=== PATIENT | female | born 1950 | race Two or more races ===

== ENCOUNTER 2018-07-10 09:38 | Outpatient (CLI) | payer OTHER | END 2018-07-10 10:00 | disposition home or self-care (01) | LOC: NUCLEAR 09:38 | DX: I65.23 Occlusion and stenosis of bilateral carotid arteries (principal) ==

== ENCOUNTER 2018-07-26 08:47 | Outpatient (CLI) | payer OTHER | END 2018-07-26 08:48 | disposition home or self-care (01) | LOC: SONOGRAMA 08:47 | DX: R10.9 Unspecified abdominal pain (principal) ==

== ENCOUNTER → 2018-08-01 | Outpatient (CLI) | payer OTHER | END | disposition home or self-care (01) | LOC: NUCLEAR 09:52 | DX: I20.8 Other forms of angina pectoris (principal) | CPT/HCPCS: 78452; 93017; A9500; J0153 ==

== ENCOUNTER 2019-12-25 08:47 | Emergency (ER) | payer OTHER ==
[~2019-12-25] VITALS: Ht 162.6 cm; Wt 93.0 kg
[2019-12-25] MEDS ORDERED: LEVOTHYROXINE25 MCG (08:55)
== END 2019-12-25 14:00 | disposition home or self-care (01) ==
LOC: ER 08:47
DX: R10.31 Right lower quadrant pain (principal); Z20.828 Contact with and (suspected) exposure to other viral communicable diseases

== ENCOUNTER 2021-07-20 15:35 | Outpatient (CLI) | payer OTHER ==
[~2021-07-20 15:35] MED LIST: LEVOTHYROXINE25 MCG
== END 2021-07-20 15:39 | disposition home or self-care (01) ==
LOC: RAD 15:35
PROVIDERS: ATTEND Internal Medicine
DX: M25.511 Pain in right shoulder (principal); M25.512 Pain in left shoulder; M25.562 Pain in left knee; M25.561 Pain in right knee

== ENCOUNTER 2022-10-20 12:55 | Outpatient (CLI) | payer OTHER | END 2022-10-20 13:12 | disposition home or self-care (01) | LOC: RAD 12:55 | PROVIDERS: ATTEND Physical Medicine & Rehabilitation | DX: M25.561 Pain in right knee (principal); M25.562 Pain in left knee; M25.511 Pain in right shoulder; M25.512 Pain in left shoulder ==

== ENCOUNTER 2022-10-24 12:52 | Outpatient (CLI) | payer OTHER | END 2022-10-24 12:57 | disposition home or self-care (01) | LOC: SONOGRAMA 12:52 | PROVIDERS: ATTEND Physical Medicine & Rehabilitation | DX: E04.1 Nontoxic single thyroid nodule (principal); M25.511 Pain in right shoulder; M25.512 Pain in left shoulder; M75.102 Unspecified rotator cuff tear or rupture of left shoulder, not specified as traumatic ==

== ENCOUNTER 2022-12-14 11:10 | Outpatient (CLI) | payer OTHER | END 2022-12-14 11:20 | disposition home or self-care (01) | LOC: RAD 11:10 | PROVIDERS: ATTEND Physical Medicine & Rehabilitation | DX: M54.2 Cervicalgia (principal) ==

== ENCOUNTER 2023-02-16 11:52 | Outpatient (CLI) | payer OTHER | END 2023-02-16 12:05 | disposition home or self-care (01) | LOC: MRI 11:52 | PROVIDERS: ATTEND Internal Medicine | DX: M54.2 Cervicalgia (principal); M25.512 Pain in left shoulder | CPT/HCPCS: 72141; 73218 ==

== ENCOUNTER 2023-03-28 10:30 | Outpatient (CLI) | payer OTHER | END 2023-03-28 10:43 | disposition home or self-care (01) | LOC: MRI 10:30 | PROVIDERS: ATTEND Orthopaedic Surgery | DX: M25.562 Pain in left knee (principal) | CPT/HCPCS: 73721 ==

== ENCOUNTER 2023-05-06 09:54 | Emergency (ER) | payer OTHER ==
[~2023-05-06] VITALS: Ht 162.6 cm; Wt 90.7 kg
[2023-05-06] MEDS ORDERED: AVELOX (10:11)
[2023-05-06] MEDS ORDERED: DEXAMETHAS0.5 MG/5 M PO (10:12)
[2023-05-06] MEDS ORDERED: KETO10TA2 PO (10:12)
== END 2023-05-06 15:40 | disposition home or self-care (01) ==
LOC: ER 09:55
DX: H60.91 Unspecified otitis externa, right ear (principal)
CPT/HCPCS: 70130; 70360; 72040; 96365; 99284; J0696

== ENCOUNTER 2024-11-04 09:11 | Emergency (ER) | payer OTHER ==
[~2024-11-04] VITALS: Ht 162.6 cm; Wt 83.9 kg
[~2024-11-04 09:11] MED LIST changes: +AVELOX; +DEXAMETHAS0.5 MG/5 M PO; +KETO10TA2 PO
[2024-11-04] MEDS ORDERED: ORPHENADRINE CITRATE 30 MG/ML AMPUL IM ONE (13:15)
[2024-11-04] MEDS ORDERED: KETOROLAC TROMETHAMINE 30 MG VIAL IV ONE (13:15)
[2024-11-04] MEDS ORDERED: DEXAMETHASONE SODIUM PHOSPHATE 4 MG/ML VIAL IM ONE (13:15)
[2024-11-04] MEDS ORDERED: DEXAMETHASONE SODIUM PHOSPHATE 4 MG/ML VIAL IV ONE (13:15)
[2024-11-04 14:17] LABS: BASO % 0.4 % (0.1-1.2); EOS # 0.19 (0.04-0.54); EOS % 2.3 % (0.7-7.0); LYMPH # 2.47 (1.18-3.74); LYMPH % 29.4 % (19.3-53.1); MEAN PLATELET VOLUME 10.50 fl (9.4-12.4); MONO # 0.61 (0.24-0.82); MONO % 7.3 % (4.7-12.5); NEUT # 5.07 (1.56-6.13); NEUT % 60.4 % (34.0-71.1); RED CELL DISTRIBUTION WIDTH 15.1 % (11.6-14.4)
[2024-11-04 16:44] LABS: URINE APPEARANCE Clear; URINE BILIRRUBIN Negative (NEGATIVE); URINE BLOOD Negative; URINE COLOR Yellow; URINE GLUCOSE Negative (NEGATIVE); URINE KETONE Negative (NEGATIVE); URINE LEUKOCYTE Trace; URINE NITRATE Negative; URINE PROTEIN Negative (NEGATIVE); URINE UROBILINOGEN 0.2 E.U./dl
[2024-11-04 16:55] LABS: URINE BACTERIA 49.1 uL (0.0-1933); URINE EPITHELIAL CELLS 8.5 uL (0.0-38.8); URINE WBC 5.6 uL (0.0-23.2)
[2024-11-04 17:21] LABS: URINE CAST 0.14 uL (0.0-1.40); URINE RBC 1.4 uL (0.0-20.8)
== END 2024-11-04 18:10 | disposition home or self-care (01) ==
LOC: ER 09:11
PROVIDERS: Preventive Medicine Public Health & General Preventive Medicine
DX: M54.50 Low back pain, unspecified (principal); R30.0 Dysuria; E03.8 Other specified hypothyroidism

== ENCOUNTER 2025-01-07 13:36 | Inpatient (IN) | payer OTHER ==
[~2025-01-07] VITALS: Ht 132.1 cm; Wt 86.2 kg
[2025-01-07] MEDS ORDERED: PANTOPRAZOLE SODIUM 40 MG in 0.9 % SODIUM CHLORIDE 8 ML IV PUSH STA (13:57)
[2025-01-07] MEDS ORDERED: ONDANSETRON HCL 2 MG/ML VIAL IV SCH (14:00)
[2025-01-07] MEDS ORDERED: DEXTROSE 5 %-0.45 % SOD CHLORD 1,000 ML IV SCH (14:00)
--- NOTE | 2025-01-07 15:50 | NUR ---
PACIENTE FEMINA, S/V EN PARAMETROS NORMALES, C/C DOLOR ABDOMINAL IRRADIA LADO DERECHO, SE UBICA EN CAMA 9 PARA SER EVALUADA.
[2025-01-07] MEDS ORDERED: ONDANSETRON HCL 2 MG/ML VIAL ONE (15:59)
[2025-01-07] MEDS ORDERED: BARIUM SULFATE 450 ML ORAL.SUSP PO ONE (16:00)
[2025-01-07] MEDS ORDERED: DIATRIZOATE MEGLUMINE, SODIUM 30 ML BOTTLE ONE (16:06)
--- NOTE | 2025-01-07 16:21 | NUR ---
MS AVE ORIENTA PTE SOBRE TX MEDICO EL CUAL REFIERE ENTENDER.SE LE EXTRAEN MUESTRAS BAJO MEDIDAS ASEPTICAS,SE CANALIZA Y SE ADMINISTRAN MEDICAMENTOS.SE ENTREGA CONTRASTE Y SE NOTIFICA ESTUDIO.
[2025-01-07 16:33] LABS: BASO % 0.6 % (0.1-1.2); EOS # 0.04 (0.04-0.54); EOS % 0.6 % (0.7-7.0); LYMPH # 4.12 (1.18-3.74); LYMPH % 58.6 % (19.3-53.1); MEAN PLATELET VOLUME 9.80 fl (9.4-12.4); MONO # 0.47 (0.24-0.82); MONO % 6.7 % (4.7-12.5); NEUT # 2.32 (1.56-6.13); NEUT % 32.9 % (34.0-71.1); RED CELL DISTRIBUTION WIDTH 14.8 % (11.6-14.4)
[2025-01-07 16:57] LABS: INR 1.0
[2025-01-07 17:17] LABS: ALT/SGPT 66.0 U/L (12-78); AST/SGOT 81.0 U/L (15-37); BILIRUBIN TOTAL 0.49 mg/dL (0.3-1.2); BUN CREA RATIO 10.0 (7.0-25.0); CREATININE SERUM 0.7 mg/dL (0.55-1.02); GFR 81.36; GLOBULINA 3.9 G/DL (2.4-3.5); GLUCOSE FASTING 95.0 mg/dL (65-100); OSMOLALITY SERUM 275.0 MOSM/KG (275-295)
[2025-01-07] MEDS ORDERED: PIPERACILLIN/TAZOBACTAM SODIUM 3.375 GM VIAL IV ONE ×3 (17:30→22:17)
[2025-01-07 17:42] LABS: URINE APPEARANCE Clear; URINE BILIRRUBIN Negative (NEGATIVE); URINE BLOOD Negative; URINE COLOR Yellow; URINE GLUCOSE Negative (NEGATIVE); URINE KETONE Negative (NEGATIVE); URINE LEUKOCYTE Trace; URINE NITRATE Negative; URINE PROTEIN Negative (NEGATIVE); URINE UROBILINOGEN 0.2 E.U./dl
[2025-01-07 17:45] LABS: URINE BACTERIA 64.7 uL (0.0-1933); URINE EPITHELIAL CELLS 11.5 uL (0.0-38.8); URINE RBC 2.1 uL (0.0-20.8); URINE WBC 28.9 uL (0.0-23.2)
[2025-01-07 18:03] LABS: URINE CAST 0.14 uL (0.0-1.40)
[2025-01-07] MEDS ORDERED: PIPERACILLIN/TAZOBACTAM SODIUM 3.375 GM in 0.9 % SODIUM CHLORIDE 100 ML IV SCH (21:59)
[2025-01-07] MEDS ORDERED: ONDANSETRON HCL 4 MG in 0.9 % SODIUM CHLORIDE 50 ML IV PRN (22:00)
[2025-01-07] MEDS ORDERED: MORPHINE SULFATE 2 MG/ML CARTRIDGE IV PRN (22:00)
[2025-01-07] MEDS ORDERED: 0.9 % SODIUM CHLORIDE 1,000 ML IV SCH (22:15)
[2025-01-07 23:50] LABS: COVID-19 AG NEGATIVE (NEGATIVE)
[2025-01-08 00:33] VITALS: BP 160/87; O2SAT 99
[2025-01-08 03:26] VITALS: BP 121/76; O2SAT 96
[2025-01-08] MEDS ORDERED: LEVOTHYROXINE SODIUM 25 MCG TABLET PO SCH (06:00)
[2025-01-08 08:00] VITALS: BP 124/73; O2SAT 97
[2025-01-08] MEDS ORDERED: PANTOPRAZOLE SODIUM 40 MG/VIAL VIAL IV NR (12:00)
[2025-01-08] MEDS ORDERED: LIDOCAINE HCL 1%/EPINEPHRINE 20ML VIAL IJ ONE (12:39)
[2025-01-08] MEDS ORDERED: BUPIVACAINE HCL/MPF 0.5% 30ML VIAL ONE (12:39)
[2025-01-08] MEDS ORDERED: SUCRALFATE 1 G TABLET PO SCH (13:00)
[2025-01-08] MEDS ORDERED: SUGAMMADEX SODIUM 200 MG/2 ML VIAL IV ONE (15:15)
[2025-01-08] MEDS ORDERED: MORPHINE SULFATE 2 MG/ML CARTRIDGE IV ONE (16:30)
[2025-01-08] MEDS ORDERED: ONDANSETRON HCL 2 MG/ML VIAL ONE (16:36)
[2025-01-08] MEDS ORDERED: PIPERACILLIN/TAZOBACTAM SODIUM 3.375 GM VIAL IV ONE (18:18)
[2025-01-08] MEDS ORDERED: ENALAPRILAT DIHYDRATE 1.25 MG/ML VIAL IV ONE (19:00)
[2025-01-08] MEDS ORDERED: ENALAPRILAT DIHYDRATE 1.25 MG/ML VIAL IV PRN (19:00)
[2025-01-08] MEDS ORDERED: MORPHINE SULFATE 2 MG/ML CARTRIDGE IV PRN (19:04)
[2025-01-08] MEDS ORDERED: MORPHINE SULFATE 4 MG/ML CARTRIDGE IV PRN (19:15)
[2025-01-08 19:36] VITALS: BP 149/71; O2SAT 94
[2025-01-08] MEDS ORDERED: PANTOPRAZOLE SODIUM 40 MG/VIAL VIAL IV SCH (21:00)
[2025-01-09 02:19] VITALS: BP 142/75; O2SAT 96
[2025-01-09 06:30] LABS: BASO % 0.3 % (0.1-1.2); EOS # 0.03 (0.04-0.54); EOS % 0.4 % (0.7-7.0); LYMPH # 2.41 (1.18-3.74); LYMPH % 33.8 % (19.3-53.1); MEAN PLATELET VOLUME 10.10 fl (9.4-12.4); MONO # 0.49 (0.24-0.82); MONO % 6.9 % (4.7-12.5); NEUT # 4.15 (1.56-6.13); NEUT % 58.3 % (34.0-71.1); RED CELL DISTRIBUTION WIDTH 15.3 % (11.6-14.4)
[2025-01-09 07:00] LABS: ALT/SGPT 148.0 U/L (12-78); AST/SGOT 231.0 U/L (15-37); BILIRUBIN TOTAL 1.02 mg/dL (0.3-1.2); BUN CREA RATIO 6.0 (7.0-25.0); CREATININE SERUM 0.64 mg/dL (0.55-1.02); GFR 90.22; GLOBULINA 3.2 G/DL (2.4-3.5); GLUCOSE FASTING 91.0 mg/dL (65-100); OSMOLALITY SERUM 281.0 MOSM/KG (275-295)
[2025-01-09 07:58] VITALS: BP 167/80; O2SAT 97
[2025-01-09 11:10] VITALS: BP 121/70
[2025-01-09] MEDS ORDERED: TRAM1TAB98 PO (11:46)
[2025-01-09] MEDS ORDERED: CARAFATE1 GM PO (11:47)
[2025-01-09] MEDS ORDERED: PROTONIX40 MG PO (11:47)
[2025-01-09 17:06] VITALS: BP 141/79; O2SAT 99
[2025-01-10 01:13] VITALS: BP 139/73; O2SAT 99
[2025-01-10 08:00] VITALS: BP 145/66; O2SAT 99
[2025-01-10 08:23] LABS: ALT/SGPT 125.0 U/L (12-78); AST/SGOT 126.0 U/L (15-37); BILIRUBIN TOTAL 0.54 mg/dL (0.3-1.2); BUN CREA RATIO 3.0 (7.0-25.0); CREATININE SERUM 0.64 mg/dL (0.55-1.02); GFR 90.22; GLOBULINA 3.3 G/DL (2.4-3.5); GLUCOSE FASTING 130.0 mg/dL (65-100); OSMOLALITY SERUM 283.0 MOSM/KG (275-295)
[2025-01-10] MEDS ORDERED: ENOXAPARIN SODIUM 40 MG/0.4 ML SYRINGE SUBCUTANEO SCH (09:00)
== END 2025-01-10 14:57 | disposition home or self-care (01) | DRG 419 ==
LOC: ER 13:36 → SURH 22:30 → SURG 22:30 → SURH 01-09 14:11
PROVIDERS: General Practice; Internal Medicine; Specialist; ADMIT Internal Medicine; ATTEND Internal Medicine
PROC: BW21ZZZ Computerized Tomography (CT Scan) of Abdomen and Pelvis (ICD-10-PCS; 2025-01-07)
PROC: BW40ZZZ Ultrasonography of Abdomen (ICD-10-PCS; 2025-01-07)
PROC: 0FT44ZZ Resection of Gallbladder, Percutaneous Endoscopic Approach (ICD-10-PCS; principal; 2025-01-08 14:15)
DX: K80.20 Calculus of gallbladder without cholecystitis without obstruction (principal); K57.90 Diverticulosis of intestine, part unspecified, without perforation or abscess without bleeding

== ENCOUNTER → 2025-04-11 | Emergency (ER) | payer OTHER ==
[~2025-04-11] VITALS: Ht 162.6 cm; Wt 79.4 kg
[~2025-04-11] MED LIST changes: +0.9 % SODIUM CHLORIDE 1,000 ML IV SCH; +ALBUTEROL SULFATE 3 ML/2.5 MG AMPUL.NEB IH ONE; +AZITHROMYCIN 500 MG VIAL IV ONE; +CARAFATE1 GM PO; +CEFTRIAXONE SODIUM 500 MG VIAL IV ONE; +FAMOTIDINE/PF 20 MG/2 ML VIAL IV ONE; +FAMOTIDINE/PF 20 MG/2 ML VIAL ONE; +GUAIFENESIN 200 MG/10 ML BLIST.PACK PO ONE; +IPRATROPIUM BROMIDE 0.5 MG/2.5 ML AMPUL.NEB IH ONE; +IPRATROPIUM/ALBUTEROL SULFATE 3 ML AMPUL.NEB IH ONE; +METHYLPREDNISOLONE SOD SUCC 40 MG VIAL IV ONE; +METHYLPREDNISOLONE SOD SUCC 40 MG VIAL ONE; +PROTONIX40 MG PO; +TRAM1TAB98 PO; +ZITHROMAX TRI-500 MG PO; +[UNRECOGNIZED DRUG - OTHER] PO
[2025-04-11 10:48] LABS: BASO % 0.6 % (0.1-1.2); EOS # 0.20 (0.04-0.54); EOS % 2.9 % (0.7-7.0); LYMPH # 1.77 (1.18-3.74); LYMPH % 25.8 % (19.3-53.1); MEAN PLATELET VOLUME 8.80 fl (9.4-12.4); MONO # 0.73 (0.24-0.82); MONO % 10.6 % (4.7-12.5); NEUT # 4.11 (1.56-6.13); NEUT % 60.0 % (34.0-71.1); RED CELL DISTRIBUTION WIDTH 15.4 % (11.6-14.4)
[2025-04-11 10:51] LABS: ERYTHROCYTE SEDIMENTATION RATE 84 mm/hr (0-30)
[2025-04-11 11:26] LABS: ALT/SGPT 17.0 U/L (12-78); AST/SGOT 16.0 U/L (15-37); BILIRUBIN TOTAL 0.24 mg/dL (0.3-1.2); BUN CREA RATIO 15.0 (7.0-25.0); CREATININE SERUM 0.52 mg/dL (0.55-1.02); GFR 114.34; GLOBULINA 3.9 G/DL (2.4-3.5); GLUCOSE FASTING 101.0 mg/dL (65-100); OSMOLALITY SERUM 282.0 MOSM/KG (275-295)
[2025-04-11 11:44] LABS: COVID-19 AG NEGATIVE (NEGATIVE)
== END | disposition home or self-care (01) ==
LOC: ER 08:08
PROVIDERS: Student in an Organized Health Care Education/Training Program
DX: J06.9 Acute upper respiratory infection, unspecified (principal); B34.9 Viral infection, unspecified; Z20.822 Contact with and (suspected) exposure to COVID-19
CPT/HCPCS: 36415; 71046; 82803; 94640; 96365; 99283; J0456; J0696; J3490; J7030

== ENCOUNTER 2025-04-13 09:30 | Inpatient (IN) | payer OTHER ==
[~2025-04-13] VITALS: Ht 170.2 cm; Wt 81.6 kg
[~2025-04-13 09:30] MED LIST changes: -0.9 % SODIUM CHLORIDE 1,000 ML IV SCH; -ALBUTEROL SULFATE 3 ML/2.5 MG AMPUL.NEB IH ONE; -AZITHROMYCIN 500 MG VIAL IV ONE; -CEFTRIAXONE SODIUM 500 MG VIAL IV ONE; -FAMOTIDINE/PF 20 MG/2 ML VIAL IV ONE; -FAMOTIDINE/PF 20 MG/2 ML VIAL ONE; -GUAIFENESIN 200 MG/10 ML BLIST.PACK PO ONE; -IPRATROPIUM BROMIDE 0.5 MG/2.5 ML AMPUL.NEB IH ONE; -IPRATROPIUM/ALBUTEROL SULFATE 3 ML AMPUL.NEB IH ONE; -METHYLPREDNISOLONE SOD SUCC 40 MG VIAL IV ONE; -METHYLPREDNISOLONE SOD SUCC 40 MG VIAL ONE
--- NOTE | 2025-04-13 10:05 | NUR ---
PACIENTE FEMINA ALERTA ORIENTADA X3 CON ALTERACION AL SISTEMA RESPIRATORIO RELACIONADON A CONGESTION NASAL Y [place] SE REALIZAN SIGNOS VITALES Y SE LOCALIZA EN EL AREA DE [place]. PACIENTE REFIERE QUE ESTUVO EN LA [place] DE EMERGENCIA EL SABADO Y POSTERIORMENTE REGRESA POR EMPEORO DE SINTOMAS CON DEONNA TOS ROCKY.
[2025-04-13] MEDS ORDERED: CETIRIZINE HCL 5 MG/5 ML ML PO ONE (10:45)
[2025-04-13] MEDS ORDERED: FAMOtidine 10 MG/ML (4ML VIAL) IV PUSH ONE (10:45)
[2025-04-13] MEDS ORDERED: AZITHROMYCIN 500 MG VIAL IV ONE ×2 (10:45→11:00)
[2025-04-13] MEDS ORDERED: IPRATROPIUM BROMIDE 0.5 MG/2.5 ML AMPUL.NEB IH SCH (10:45)
[2025-04-13] MEDS ORDERED: BUDESONIDE 0.5 MG/2 ML AMPUL.NEB IH ONE (10:45)
[2025-04-13] MEDS ORDERED: MAGNESIUM SULFATE IN WATER 50 ML IV ONE (10:45)
[2025-04-13] MEDS ORDERED: ALBUTEROL SULFATE 3 ML/2.5 MG AMPUL.NEB IH SCH (10:45)
[2025-04-13] MEDS ORDERED: METHYLPREDNISOLONE SOD SUCC 125 MG VIAL IV ONE (10:45)
[2025-04-13] MEDS ORDERED: METHYLPREDNISOLONE SOD SUCC 125 MG VIAL ONE (10:59)
[2025-04-13] MEDS ORDERED: MAGNESIUM SULFATE 50% 1,000 MG/2 ML VIAL ONE (10:59)
[2025-04-13] MEDS ORDERED: CETIRIZINE HCL 5MG/5ML BLIST.PACK PO ONE (11:00)
[2025-04-13] MEDS ORDERED: FAMOTIDINE/PF 20 MG/2 ML VIAL ONE (11:00)
[2025-04-13 11:56] LABS: BASO % 0.5 % (0.1-1.2); EOS # 0.26 (0.04-0.54); EOS % 3.3 % (0.7-7.0); LYMPH # 2.88 (1.18-3.74); LYMPH % 36.7 % (19.3-53.1); MEAN PLATELET VOLUME 9.20 fl (9.4-12.4); MONO # 0.70 (0.24-0.82); MONO % 8.9 % (4.7-12.5); NEUT # 3.96 (1.56-6.13); NEUT % 50.5 % (34.0-71.1); RED CELL DISTRIBUTION WIDTH 15.5 % (11.6-14.4)
--- NOTE | 2025-04-13 12:08 | NUR ---
MEDICO EVALUA PACIENTE, SE LE ADMINISTRA MEDICAMENTOS STIVEN ORDEN MEDICA, SE LE MAY MUESTRA DE MEDICAMENTOS, PACIENTE REFIERE ENTENDER.
[2025-04-13 12:37] LABS: ALT/SGPT 19.0 U/L (12-78); AST/SGOT 18.0 U/L (15-37); BILIRUBIN TOTAL 0.31 mg/dL (0.3-1.2); BUN CREA RATIO 14.0 (7.0-25.0); CREATININE SERUM 0.7 mg/dL (0.55-1.02); GFR 81.14; GLOBULINA 4.6 G/DL (2.4-3.5); GLUCOSE FASTING 96.0 mg/dL (65-100); OSMOLALITY SERUM 278.0 MOSM/KG (275-295)
[2025-04-13] MEDS ORDERED: DEXTROSE 50 % IN WATER 0.5 G/ML DISP.SYRIN IV PRN (21:30)
[2025-04-13] MEDS ORDERED: INSULIN LISPRO 1,000 UNIT/10 ML UNITS SUBCUTANEO PRN (21:30)
[2025-04-13] MEDS ORDERED: BENZONATATE 100 MG CAPSULE PO SCH (21:34)
[2025-04-14] MEDS ORDERED: BENZONATATE 200 MG CAPSULE PO SCH (09:00)
[2025-04-14] MEDS ORDERED: LEVALBUTEROL HCL 0.63 MG/3 ML SOLUTION IH SCH (09:00)
[2025-04-14] MEDS ORDERED: IPRATROPIUM/ALBUTEROL SULFATE 3 ML AMPUL.NEB IH SCH (09:00)
[2025-04-14] MEDS ORDERED: METHYLPREDNISOLONE SOD SUCC 40 MG VIAL IV SCH (09:00)
[2025-04-14 09:32] VITALS: BP 141/70; O2SAT 98
[2025-04-14] MEDS ORDERED: AZITHROMYCIN 500 MG VIAL IV SCH (12:00)
[2025-04-14] MEDS ORDERED: AZITHROMYCIN 500 MG VIAL IV ONE (12:12)
[2025-04-14 18:50] VITALS: BP 133/73; O2SAT 98
[2025-04-15 02:44] VITALS: BP 128/79; O2SAT 97
[2025-04-15] MEDS ORDERED: AZITHROMYCIN 500 MG VIAL IV ONE (08:22)
[2025-04-15 08:56] VITALS: BP 156/79
[2025-04-15] MEDS ORDERED: POTASSIUM BICARBONATE/CIT AC 25 MEQ TABLET.EFF PO NR (14:30)
[2025-04-15 15:23] LABS: COVID-19 AG NEGATIVE (NEGATIVE)
[2025-04-15 16:45] VITALS: BP 136/70; O2SAT 96
[2025-04-15] MEDS ORDERED: CHOLECALCIFEROL (VITAMIN D3) 5,000 UNITS TABLET PO SCH (17:00)
[2025-04-15] MEDS ORDERED: ROSUVASTATIN CALCIUM 10 MG TABLET PO SCH (17:00)
[2025-04-16] MEDS ORDERED: METHYLPREDNISOLONE SOD SUCC 40 MG VIAL IV SCH (01:00)
[2025-04-16 01:51] VITALS: BP 144/66; O2SAT 93
[2025-04-16] MEDS ORDERED: LEVOTHYROXINE SODIUM 25 MCG TABLET PO SCH (06:00)
[2025-04-16 09:18] VITALS: BP 143/75
[2025-04-16] MEDS ORDERED: AZITHROMYCIN 500 MG VIAL IV ONE (11:31)
[2025-04-16] MEDS ORDERED: MEDROLPACK PO (12:38)
[2025-04-16] MEDS ORDERED: LEVALBUTER0.63 MG/3 IH (12:40)
[2025-04-16] MEDS ORDERED: IPRATROPIU0.2 MG/1 M IH (12:41)
[2025-04-16] MEDS ORDERED: SYMBICORT 80/10.2 GM IH (12:42)
[2025-04-16] MEDS ORDERED: BENZONATATE200 M1 PO (12:43)
[2025-04-16] MEDS ORDERED: TUSSIN DM LIQU118 ML PO (12:43)
== END 2025-04-16 14:52 | disposition home or self-care (01) | DRG 203 ==
LOC: ER 09:31 → MEDI 21:33
PROVIDERS: General Practice; Internal Medicine; ADMIT Internal Medicine; ATTEND Internal Medicine
PROC: 3E0F7GC Introduction of Other Therapeutic Substance into Respiratory Tract, Via Natural or Artificial Opening (ICD-10-PCS; principal; 2025-04-13)
PROC: 4A033R1 Measurement of Arterial Saturation, Peripheral, Percutaneous Approach (ICD-10-PCS; 2025-04-13)
PROC: BB24ZZZ Computerized Tomography (CT Scan) of Bilateral Lungs (ICD-10-PCS; 2025-04-13)
DX: J20.9 Acute bronchitis, unspecified (principal)